=== PATIENT | male | born 1975 | race Hispanic/Latino ===

== ENCOUNTER 2020-03-02 04:44 | Inpatient (IN) | payer SELFPAY ==
[~2020-03-02] VITALS: Ht 170.2 cm; Wt 105.7 kg
[2020-03-02] MEDS ORDERED: ONDANSETRON HCL INJ 2MG/ML 2ML 2 MG/ML VIAL IV NR (05:29)
[2020-03-02] MEDS ORDERED: CEFTRIAXONE SOD 1 GM/NS 50 ML 50 ML IV ONE (05:30)
[2020-03-02] MEDS ORDERED: DEXAMETHASONE SOD PHOS 10 MG/1 ML VIAL IV ONE (05:30)
[2020-03-02] MEDS ORDERED: AZITHROMYCIN 500MG/NS 250 ML 250 ML IV ONE (05:30)
[2020-03-02] MEDS ORDERED: DEXAMETHASONE SOD PHOS INJ 4 MG/ML VIAL ONE (06:54)
[2020-03-02] MEDS ORDERED: SODIUM CHLORIDE 0.9% 50ML 50 ML ONE (06:54)
[2020-03-02] MEDS ORDERED: CEFTRIAXONE SOD 1 GM VIAL ONE (06:55)
[2020-03-02] MEDS: CEFTRIAXONE SOD 1 GRAM/0.9% SOD CHL 50ML BAG IV SCH (07:15)
[2020-03-02] MEDS ORDERED: AZITHROMYCIN 500MG/SOD CHL 0.9% 250ML BAG IV SCH (07:15)
[2020-03-02] MEDS: SODIUM CHLORIDE FLUSH 10 ML SYR INJ PRN (07:27)
[2020-03-02] MEDS ORDERED: ALBUTEROL SULFATE HFA 8GM INHALATION AEROSOL INH PRN (08:15)
[2020-03-02] MEDS ORDERED: DEXTROSE 50% SYRINGE 50 ML IV PRN (08:15)
[2020-03-02] MEDS: ZINC SULFATE 220 MG CAP PO SCH (09:00)
[2020-03-02] MEDS: ASCORBIC ACID 500 MG TAB PO SCH ×2 (09:00→16:27)
[2020-03-02] MEDS: ENOXAPARIN SOD INJ 40 MG/0.4 ML SYR SC SCH ×2 (09:00→21:12)
[2020-03-02] MEDS: CHOLECALCIFEROL 1,000 UNIT TAB PO SCH (09:00)
[2020-03-02 10:49] VITALS: BP 125/84
[2020-03-02 10:51] VITALS: BP 125/84
[2020-03-02 10:54] VITALS: BP 125/84
[2020-03-02] MEDS: INSULIN LISPRO 100 UNIT/1 ML 3ML VIAL SQ SCH ×3 (11:30→21:00)
[2020-03-02] MEDS ORDERED: REMDESIVIR 200MG/NS 100ML 200 MG in SODIUM CHLORIDE 0.9% 100 ML 100 ML IV ONE (13:00)
[2020-03-02 17:00] VITALS: BP 133/91
[2020-03-02] MEDS: ALBUTEROL SULFATE HFA 8GM INHALATION AEROSOL INH SCH (19:00)
[2020-03-02 20:41] VITALS: BP 139/95
[2020-03-02] MEDS ORDERED: ZOLPIDEM TARTRATE 5 MG TAB PO PRN (21:00)
[2020-03-03] VITALS (7 sets, daily range): BP systolic 121–136; BP diastolic 81–98
[2020-03-03 05:15] LABS: BASOPHILS % 0.2 % (0.0-1.0); HEMATOCRIT 44.3 % (38.2-49.6); HEMOGLOBIN 14.8 g/dL (14.0-18.0); LYMPHOCYTES # (AUTO) 1.5 (1.0-3.2); LYMPHOCYTES % 14.7 % (18.0-39.1); MEAN CORPUSCULAR HEMOGLOBIN 29.9 pg (28-32); MEAN CORPUSCULAR HGB CONC 33.4 g/dL (31-35); MEAN CORPUSCULAR VOLUME 89.5 fL (81-99); MONOCYTES % 10.4 % (4.4-11.3); NEUTROPHILS # (AUTO) 7.3 (2.1-6.9); PLATELET COUNT 286 x10e3/uL (140-360); RED BLOOD COUNT 4.95 x10e6/uL (4.3-5.7); RED CELL DISTRIBUTION WIDTH 13.7 % (11.7-14.4)
[2020-03-03 05:32] LABS: ALANINE AMINOTRANSFERASE 83 IU/L (0-55); ALBUMIN 2.9 g/dL (3.5-5.0); ALBUMIN/GLOBULIN RATIO 0.6 (0.8-2.0); ALKALINE PHOSPHATASE 66 IU/L (40-150); ANION GAP 15.2 mmol/L (8-16); BLOOD UREA NITROGEN 21 mg/dL (7-26); BUN/CREATININE RATIO 20 (6-25); CALCIUM 9.1 mg/dL (8.4-10.2); CARBON DIOXIDE 27 mmol/L (22-29); CHLORIDE 98 mmol/L (98-107); CREATININE, SERUM 1.05 mg/dL (0.72-1.25); EST GLOMERULAR FILTRATION RATE > 60 ML/MIN (60-); GLUCOSE 116 mg/dL (74-118); POTASSIUM 4.2 mmol/L (3.5-5.1); SODIUM 136 mmol/L (136-145)
[2020-03-03] MEDS: AZITHROMYCIN 500MG/NS 250 ML 250 ML IV SCH (06:08)
[2020-03-03] MEDS: ALBUTEROL SULFATE HFA 8GM INHALATION AEROSOL INH SCH ×2 (07:00→19:00)
[2020-03-03] MEDS: INSULIN LISPRO 100 UNIT/1 ML 3ML VIAL SQ SCH ×4 (07:30→20:50)
[2020-03-03] MEDS ORDERED: SODIUM CHLORIDE 0.9% 250ML 250 ML ONE (08:19)
[2020-03-03] MEDS: DEXAMETHASONE SOD PHOS INJ 4 MG/ML VIAL IV SCH (08:28)
[2020-03-03] MEDS: CEFTRIAXONE SOD 1 GRAM/0.9% SOD CHL 50ML BAG IV SCH (08:28)
[2020-03-03] MEDS: ENOXAPARIN SOD INJ 40 MG/0.4 ML SYR SC SCH ×2 (08:29→21:24)
[2020-03-03] MEDS: ASCORBIC ACID 500 MG TAB PO SCH ×2 (08:29→16:34)
[2020-03-03] MEDS: ZINC SULFATE 220 MG CAP PO SCH (08:29)
[2020-03-03] MEDS: CHOLECALCIFEROL 1,000 UNIT TAB PO SCH (08:29)
[2020-03-03] MEDS: REMDESIVIR 100MG/NS 100ML 100 MG IV SCH (16:26)
[2020-03-03] MEDS: SODIUM CHLORIDE FLUSH 10 ML SYR INJ PRN (16:32)
[2020-03-03] MEDS: BENZONATATE 100 MG CAP PO PRN (16:34)
[2020-03-04] VITALS (8 sets, daily range): BP systolic 116–129; BP diastolic 86–92
[2020-03-04] MEDS: AZITHROMYCIN 500MG/NS 250 ML 250 ML IV SCH (05:59)
[2020-03-04] MEDS: ALBUTEROL SULFATE HFA 8GM INHALATION AEROSOL INH SCH ×2 (07:00→19:00)
[2020-03-04] MEDS: INSULIN LISPRO 100 UNIT/1 ML 3ML VIAL SQ SCH ×4 (07:30→21:00)
[2020-03-04] MEDS ORDERED: MAGNESIUM HYDROXIDE 30 ML UDC PO PRN (08:15)
[2020-03-04] MEDS ORDERED: ACETAMINOPHEN 325 MG TAB PO PRN (08:15)
[2020-03-04] MEDS ORDERED: SENNA-S TABLET PO PRN (08:15)
[2020-03-04] MEDS ORDERED: ONDANSETRON HCL INJ 2MG/ML 2ML 2 MG/ML VIAL IV PRN (08:15)
[2020-03-04] MEDS: CEFTRIAXONE SOD 1 GRAM/0.9% SOD CHL 50ML BAG IV SCH (09:00)
[2020-03-04] MEDS: ASCORBIC ACID 500 MG TAB PO SCH ×2 (09:50→17:30)
[2020-03-04] MEDS: ENOXAPARIN SOD INJ 40 MG/0.4 ML SYR SC SCH ×2 (09:55→21:00)
[2020-03-04] MEDS: ZINC SULFATE 220 MG CAP PO SCH (09:55)
[2020-03-04] MEDS: CHOLECALCIFEROL 1,000 UNIT TAB PO SCH (09:55)
[2020-03-04] MEDS: DEXAMETHASONE SOD PHOS INJ 4 MG/ML VIAL IV SCH (10:58)
[2020-03-04] MEDS: REMDESIVIR 100MG/NS 100ML 100 MG IV SCH (14:45)
[2020-03-04] MEDS: BENZONATATE 100 MG CAP PO PRN (21:08)
[2020-03-05] VITALS (8 sets, daily range): BP systolic 113–135; BP diastolic 80–97
[2020-03-05 04:54] LABS: BASOPHILS % 0.1 % (0.0-1.0); EOSINOPHILS % 0.1 % (0.0-6.0); HEMATOCRIT 44.2 % (38.2-49.6); HEMOGLOBIN 14.8 g/dL (14.0-18.0); LYMPHOCYTES # (AUTO) 1.8 (1.0-3.2); LYMPHOCYTES % 22.6 % (18.0-39.1); MEAN CORPUSCULAR HGB CONC 33.5 g/dL (31-35); MEAN CORPUSCULAR VOLUME 89.7 fL (81-99); MONOCYTES # (AUTO) 0.7 (0.2-0.8); MONOCYTES % 9.6 % (4.4-11.3); NEUTROPHILS # (AUTO) 5.1 (2.1-6.9); NEUTROPHILS % 65.8 % (38.7-80.0); PLATELET COUNT 304 x10e3/uL (140-360); RED BLOOD COUNT 4.93 x10e6/uL (4.3-5.7); RED CELL DISTRIBUTION WIDTH 13.3 % (11.7-14.4)
[2020-03-05 05:10] LABS: ANION GAP 14.1 mmol/L (8-16); BLOOD UREA NITROGEN 19 mg/dL (7-26); BUN/CREATININE RATIO 25 (6-25); CALCIUM 8.7 mg/dL (8.4-10.2); CARBON DIOXIDE 23 mmol/L (22-29); CHLORIDE 102 mmol/L (98-107); CREATININE, SERUM 0.77 mg/dL (0.72-1.25); EST GLOMERULAR FILTRATION RATE > 60 ML/MIN (60-); GLUCOSE 92 mg/dL (74-118); POTASSIUM 4.1 mmol/L (3.5-5.1); SODIUM 135 mmol/L (136-145)
[2020-03-05] MEDS: AZITHROMYCIN 500MG/NS 250 ML 250 ML IV SCH (06:16)
[2020-03-05] MEDS: BENZONATATE 100 MG CAP PO PRN (06:17)
[2020-03-05] MEDS: INSULIN LISPRO 100 UNIT/1 ML 3ML VIAL SQ SCH ×4 (07:30→20:59)
[2020-03-05] MEDS: CEFTRIAXONE SOD 1 GRAM/0.9% SOD CHL 50ML BAG IV SCH (08:35)
[2020-03-05] MEDS: ASCORBIC ACID 500 MG TAB PO SCH ×2 (09:04→16:44)
[2020-03-05] MEDS: CHOLECALCIFEROL 1,000 UNIT TAB PO SCH (09:04)
[2020-03-05] MEDS: ENOXAPARIN SOD INJ 40 MG/0.4 ML SYR SC SCH ×2 (09:04→20:45)
[2020-03-05] MEDS: ZINC SULFATE 220 MG CAP PO SCH (09:04)
[2020-03-05] MEDS: DEXAMETHASONE SOD PHOS INJ 4 MG/ML VIAL IV SCH (09:04)
[2020-03-05] MEDS: ALBUTEROL SULFATE HFA 8GM INHALATION AEROSOL INH SCH (09:44)
[2020-03-05] MEDS: REMDESIVIR 100MG/NS 100ML 100 MG IV SCH (14:18)
[2020-03-06] VITALS (8 sets, daily range): BP systolic 109–123; BP diastolic 79–91
[2020-03-06] MEDS: AZITHROMYCIN 500MG/NS 250 ML 250 ML IV SCH (05:19)
[2020-03-06] MEDS: INSULIN LISPRO 100 UNIT/1 ML 3ML VIAL SQ SCH ×4 (07:30→21:00)
[2020-03-06] MEDS: CEFTRIAXONE SOD 1 GRAM/0.9% SOD CHL 50ML BAG IV SCH (08:08)
[2020-03-06] MEDS: CHOLECALCIFEROL 1,000 UNIT TAB PO SCH (08:09)
[2020-03-06] MEDS: DEXAMETHASONE SOD PHOS INJ 4 MG/ML VIAL IV SCH (08:09)
[2020-03-06] MEDS: ASCORBIC ACID 500 MG TAB PO SCH ×2 (08:09→16:37)
[2020-03-06] MEDS: ENOXAPARIN SOD INJ 40 MG/0.4 ML SYR SC SCH ×2 (08:10→21:00)
[2020-03-06] MEDS: ZINC SULFATE 50 MG CAP PO SCH (08:10)
[2020-03-06] MEDS: REMDESIVIR 100MG/NS 100ML 100 MG IV SCH (15:30)
[2020-03-06] MEDS: BENZONATATE 100 MG CAP PO PRN (20:51)
[2020-03-07] VITALS (7 sets, daily range): BP systolic 113–119; BP diastolic 77–91
[2020-03-07] MEDS: AZITHROMYCIN 500MG/NS 250 ML 250 ML IV SCH (05:47)
[2020-03-07] MEDS: INSULIN LISPRO 100 UNIT/1 ML 3ML VIAL SQ SCH (07:30)
[2020-03-07] MEDS: ZINC SULFATE 50 MG CAP PO SCH (08:22)
[2020-03-07] MEDS: CHOLECALCIFEROL 1,000 UNIT TAB PO SCH (08:22)
[2020-03-07] MEDS: DEXAMETHASONE SOD PHOS INJ 4 MG/ML VIAL IV SCH (08:22)
[2020-03-07] MEDS: ASCORBIC ACID 500 MG TAB PO SCH (08:22)
[2020-03-07] MEDS: CEFTRIAXONE SOD 1 GRAM/0.9% SOD CHL 50ML BAG IV SCH (08:22)
== END 2020-03-07 12:30 | disposition home or self-care (01) | DRG 177 ==
LOC: FSED 05:37 → ERHOLD 07:11 → IMCU 10:04
PROVIDERS: ADMIT Internal Medicine; ATTEND Internal Medicine
PROC: XW033E5 Introduction of Remdesivir Anti-infective into Peripheral Vein, Percutaneous Approach, New Technology Group 5 (ICD-10-PCS; principal; 2020-03-02)
PROC: 8E0ZXY6 Isolation (ICD-10-PCS; 2020-03-02)
DX: U07.1 COVID-19 (principal); J12.82 Pneumonia due to coronavirus disease 2019; J96.01 Acute respiratory failure with hypoxia; E66.9 Obesity, unspecified; Z68.36 Body mass index [BMI] 36.0-36.9, adult; R73.9 Hyperglycemia, unspecified; Z68.38 Body mass index [BMI] 38.0-38.9, adult
CPT/HCPCS: 36415; 71045; 80048; 80053; 80076; 82553; 82948; 83880; 84484; 85025; 85379; 87040; 93005; 99284; J0456; J0696; J1100; J1650; J2405; J7050; U0002